=== PATIENT | male | born 1980 | race American Indian/Alaskan Native ===

== ENCOUNTER 2022-08-20 21:30 | Emergency (ER) | payer OTHER ==
[2022-08-21] MEDS ORDERED: LIDOCAINE (2%) 20 MG/1 ML VIAL 20 ML MDV INFILTRATI STA (01:56)
[2022-08-21] MEDS ORDERED: TETANUS,DIPH,PERTUSS(ACELL) VACCINE 0.5 ML SYRINGE IM ONE (01:56)
[2022-08-21] MEDS ORDERED: oxyCODONE /ACETAMINOPHEN 5-325MG TAB PO ONE (01:56)
--- NOTE | 2022-08-21 02:37 | XRay Report ---
LEFT FINGER(S) 3 VIEW(S) INDICATION / CLINICAL INFORMATION: finger trauma, laceration, deformity COMPARISON: None available. FINDINGS: BONES / JOINT(S): No acute fracture or subluxation. No significant arthritis. SOFT TISSUES: Soft tissue injury/laceration of the distal index finger. ADDITIONAL FINDINGS: None. IMPRESSION: 1. Soft tissue injury/laceration of the distal index finger without fracture or other acute osseous p rocess. Signer Name: Lucio Boyer MD Signed: 08/21/2022 2:33 AM Workstation Name: [id number]
[2022-08-21 04:24] VITALS: BP 164/114
--- NOTE | 2022-08-21 04:24 | Emergency Department Report ---
ED Laceration HPI - HPI Chief Complaint: Wound/Laceration Stated Complaint: FINGER LACERATION Time Seen by Provider: 08/21/22 01:06 Location: Upper Extremity Severity: moderate Tetanus Status: Unknown Laceration Symptoms: Yes Pain Other History: Accidentally cut finger with a knife resulting in bleeding pain throbbing and swelling which is dull and throbbing worse with palpation and range of motion. ED Review of Systems ROS: Stated complaint: FINGER LACERATION Other details as noted in HPI Comment: All other systems reviewed and negative ED Past Medical Hx - Social History Smoking Status: Never Smoker Substance Use Type: None - Medications Home Medications: Home Medications Medication Instructions Recorded Confirmed Last Taken Type Chlorhexidine Gluconate [Hibiclens] 10 ml TP BID #240 liquid 08/21/22 Unknown Rx cephALEXin [Keflex] 500 mg PO Q8HR #30 capsule 08/21/22 Unknown Rx Laceration Physical Exam - Exam General: Vital signs noted. No distress. Alert and acting appropriately. Wound Length (cm): 3 Laceration Location: Upper Extremity Full Body Front + Back: 1 - Left index finger laceration Laceration Exam: No Foreign Body, No Exposed Tendon, Vessel, or Nerve, No Tendon Injury ED Course Vital Signs 08/20/22 23:02 Temperature 99.4 F Pulse Rate 87 Respiratory 18 Rate Blood Pressure 138/74 O2 Sat by Pulse 99 Oximetry ED Medical Decision Making - Radiology Data Radiology results: report reviewed [facility] [address] [place] [address] XRay Report Signed Patient: YANET RUDOLPH MR#: [id number] : 1980 Acct:[id number] Age/Sex: 41 / M ADM Date: 08/20/22 Loc: ED Attending Dr: Ordering Physician: ALEXEI LEDESMA Date of Service: 08/21/22 Procedure(s): XR finger(s) 2+V LT Accession Number(s): [id number] cc: ALEXEI LEDESMA Fluoro Time In Minutes: LEFT FINGER(S) 3 VIEW(S) INDICATION / CLINICAL INFORMATION: finger trauma, laceration, deformity COMPARISON: None available. FINDINGS: BONES / JOINT(S): No acute fracture or subluxation. No significant arthritis. SOFT TISSUES: Soft tissue injury/laceration of the distal index finger. ADDITIONAL FINDINGS: None. IMPRESSION: 1. Soft tissue injury/laceration of the distal index finger without fracture or other acute osseous process. Signer Name: Kierra Nolasco MD Signed: 08/21/2022 2:33 AM Workstation Name: [id number] Transcribed By: Dictated By: KIERRA NOLASCO MD Electronically Authenticated By: KIERRA NOLASCO MD Signed Date/Time: 08/21/22232 DD/ 1 TD/TT: Print - Medical Decision Making Area prepped and draped in sterile fashion. Anesthestized with lidocaine. Irrigated with copious irrigation and explored for foreign body. Sutured with 4- 0 Ethilon sutures with adequate approximation of wound edges. The wound was then covered with bacitracin and sterile guaze. Instructions given to return in XXX days for suture removal in the ED or with their primary care doctor. Critical care attestation.: If time is entered above; I have spent that time in minutes in the direct care of this critically ill patient, excluding procedure time. ED Disposition Clinical Impression: Finger laceration Disposition: 01 HOME / SELF CARE / HOMELESS Is pt being admited?: No Does the pt Need Aspirin: No Condition: Stable Instructions: Laceration Care, Adult, Sutured Wound Care Additional Instructions: Follow up with your primary care doctor within 48-72 hours for a wound check. 8 stitches were placed in your left index finger. keep sutures covered and dry for 24 hours then clean with soap and water daily - do not scrub. cover with gauze. Return to your primary care provider or the listed provider to be evaluated for possible suture removal in 7 days. Return to the ED for any increased pain, redness, streaking (red lines), swelling, fever or chills. Keep the wound clean and as dry as possible. Do not immerse or soak the wound in water. This means no swimming, washing dishes (unless thick rubber gloves are used), baths, or hot tubs until the stitches are removed or after about two weeks if absorbable suture material was used. Leave original bandages on the wound for the first 24 hours. After this time, showering or rinsing is recommended, rather than bathing. the first day, remove old bandages and gently cleanse the wound with soap and water. Cleansing twice a day prevents buildup of debris and will result in easier suture removal. Prescriptions: Chlorhexidine Gluconate [Hibiclens] 10 ml TP BID #240 liquid cephALEXin [Keflex] 500 mg PO Q8HR #30 capsule Referrals: PRIMARY CARE, [Referring] - 7-10 days [facility] [Provider Group] - 7-10 days Forms: Work/School Release Form(ED)
== END 2022-08-21 04:24 | disposition home or self-care (01) ==
LOC: ED 21:30
DX: S61.219A Laceration without foreign body of unspecified finger without damage to nail, initial encounter (principal); W45.8XXA Other foreign body or object entering through skin, initial encounter; Y93.89 Activity, other specified; Y92.89 Other specified places as the place of occurrence of the external cause; Y99.8 Other external cause status
CPT/HCPCS: 12001; 73140; 90471; 90715; 99283; J3490